=== PATIENT | female | born 1955 | race Caucasian/White ===

== ENCOUNTER 2021-10-06 13:04 | Emergency (ER) | payer BC ==
[2021-10-06] MEDS ORDERED: Sodium Chloride 0.9% 10 ML Syringe FLUSH PRN (13:18)
[2021-10-06] MEDS ORDERED: Diltiazem 25 MG/5 ML SDV IVPUSH ONE ×2 (13:28→14:52)
[2021-10-06] MEDS ORDERED: Diltiazem IR 60 MG Tab PO ONE (13:48)
[2021-10-06 14:08] LABS: CHLORIDE,CL 98 mmol/L (98-107); SODIUM,NA 135 mmol/L (136-145)
[2021-10-06] MEDS ORDERED: Apixaban 5 MG Tab PO ONE (14:08)
[2021-10-06] MEDS ORDERED: Potassium Chloride 20 MEQ Tab.ER PO ONE (14:18)
[2021-10-06] MEDS ORDERED: Sodium Chloride 0.9% 1,000 ML IV ONE (15:48)
== END 2021-10-06 18:45 | disposition home or self-care (01) ==
LOC: LL.ED 13:04
DX: J06.9 Acute upper respiratory infection, unspecified (principal); I48.91 Unspecified atrial fibrillation; I10 Essential (primary) hypertension; J45.909 Unspecified asthma, uncomplicated; E66.9 Obesity, unspecified; Z68.30 Body mass index [BMI] 30.0-30.9, adult; Z88.7 Allergy status to serum and vaccine; Z91.048 Other nonmedicinal substance allergy status; Z79.82 Long term (current) use of aspirin; Z79.899 Other long term (current) drug therapy; Z79.01 Long term (current) use of anticoagulants
CPT/HCPCS: 36415; 71045; 80053; 82947; 83735; 84484; 85025; 85379; 85610; 93005; 93010; 94761; 96374; 96376; 99284; 99285; A9270; J3490; J7030